=== PATIENT | female | born 2005 | race Caucasian/White ===

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

== ENCOUNTER → 2025-06-18 | Outpatient (CLI) | payer OTHER, SELFPAY ==
[2025-06-22 05:06] LABS: Chlamydia By Nucleic Acid AMP Negative (Negative); Gonococcus By Nucleic Acid AMP Negative (Negative)
== END | disposition home or self-care (01) ==
PROVIDERS: Visit Provider Nurse Practitioner Family
DX: Z11.3 Encounter for screening for infections with a predominantly sexual mode of transmission (principal); R30.0 Dysuria
CPT/HCPCS: 87086; 87088; 87491; 87591

== ENCOUNTER 2025-07-16 10:49 | Emergency (ER) | payer MEDICAID, SELFPAY ==
[2025-07-16 10:51] VITALS: BP 106/71; PULSE 86; RESP 18; TEMP 36.6; O2SAT 98; BMI 28.5
--- NOTE | 2025-07-16 12:56 | ED.RN ---
THIS NURSE NOTIFIED BY AN INDIVIDUAL IN THE WAITING ROOM THAT SHE IS VAPING IN THE WAITING ROOM AND WE ARE ALLERGIC, INDIVIDUAL GESTURED TO THIS PT. PT. EDUCATED ON NO SMOKING POLICY AND INSTRUCTED DEVICE WILL BE REMOVED IF INCIDENT CONTINUES. SECURITY NOTIFIED.
--- NOTE | 2025-07-16 14:11 | EKG12_ITS ---
Test Reason : CP Blood Pressure : */* mmHG Vent. Rate : 68 BPM Atrial Rate : 68 BPM P-R Int : 164 ms QRS Dur : 78 ms QT Int : 428 ms P-R-T Axes : 34 47 8 degrees QTcB Int : 455 ms Normal sinus rhythm Normal ECG Confirmed by LINDA MORRIS, JENNIFER ([id number]), supervising editor trailer RODNEY PAL ([id number]) on 07/20/2025 6:27:39 AM Referred By: Confirmed By: JENNIFER MCKEON MD
--- NOTE | 2025-07-16 14:12 | RAD_ITS ---
PROCEDURE: CHEST PA AND LATERAL 07/16/2025 REASON FOR EXAM: SOB/CP TECHNIQUE: Procedure Code: RADCXR Modality: DX Procedure: CHEST PA AND LATERAL COMPARISON: None. RAD/Chest PA and Lateral IMPRESSION: No pleural effusion or pneumothorax is seen. Lungs appear clear throughout. The cardiomediastinal silhouette is within the normal range. No significant osseous abnormality is noted. Negative examination. Reading Location: [id number]
--- NOTE | 2025-07-16 14:14 | EX.ED.DYSGE1 ---
HPI History of Present Illness Chief Complaint: General Illness Narrative Narrative: Patient is a 19-year-old female presenting to the emergency department for URI symptoms for 4 to 5 weeks. Patient has a past medical history of frequent UTIs. States that the house ([address]) that she is living and has had multiple people sick over the past few weeks. She endorses a generalized headache, has a prior history of migraines. Endorses chills, dry cough, congestion, rhinorrhea, sore throat, nausea and nonbloody nonbilious vomiting. States she was at an urgent care about 2 weeks ago and was prescribed amoxicillin. She endorses chest pain and shortness of breath. Denies history of PE or DVT. Denies any recent travel, hospitalizations or surgeries. She is not on any current OCPs or hormone replacement. Denies any recent drug use or alcohol use. Denies neck or back pain. Denies fevers, visual changes or focal numbness or weakness. Denies head trauma. Reports she has not had a period for multiple months. [facility] Medical History Suicide ideation Home Medications ?Medication ?Instructions ?Recorded ?Last Taken ?Type aripiprazole 5 mg tablet (Abilify) 7.5 mg PO BID 06/27/19 Unknown History trazodone 150 mg tablet 300 mg PO QHS 06/27/19 Unknown History benztropine 2 mg tablet 1 mg PO BID 11/17/19 Unknown History dextroamphetamine-amphetamine 20 20 mg PO DAILY 11/17/19 Unknown History mg tablet dextroamphetamine-amphetamine ER 30 mg PO BREAKFAST 11/17/19 Unknown History 30 mg 24hr capsule,extend release escitalopram oxalate 10 mg tablet 10 mg PO DAILY 11/17/19 Unknown History Allergy/AdvReac Type Severity Reaction Status Date / Time cat dander Allergy Other Verified 07/16/25 10:54 vancomycin Allergy Unknown Verified 07/16/25 10:54 Surgical History Status post genital surgery Social History Smoking Status: Current every day smoker tobacco type: cigarettes and e-cigarettes alcohol intake: former ROS ROS ED ROS Narrative see HPI EXAM Physical Exam Narrative Exam Narrative: Vital signs: Reviewed General: Alert and orientedx3. No acute distress. Nontoxic, well appearing. HEENT: Head is normocephalic and atraumatic, sinuses nontender, pupils equal round and reactive. No conjunctival injection or hemorrhage. Nares are patent. Oropharynx and throat exams normal. Moist mucous membranes. No exudates. No posterior oropharynx erythema or swelling. No peritonsillar abscess. Neck: Supple without lymphadenopathy nontender. Normal active range of motion of neck. No nuchal rigidity. Cardiovascular: Regular rate and rhythm, no murmurs. No rubs or gallops. Normal S1 and S2 Respiratory: Clear to auscultation bilaterally. No wheezes, rales, rhonchi Abdominal: Soft and nontender. Normal bowel sounds. No guarding or rebound. Nonsurgical abdomen Extremities: No lower extremity edema. No tenderness. No bruising. Normal range of motion. Normal sensation. Skin: No rash or redness. Neurological: Cranial nerves II through XII are grossly intact. Normal strength and sensation. Normal cerebellar function The rest of the physical exam is unremarkable Const Vital Signs: 07/16/25 10:51 07/16/25 14:16 07/16/25 15:09 Temperature 98 F Temperature Source Oral Pulse Rate 86 74 Respiratory Rate 18 13 Respiratory Pattern Normal Blood Pressure 106/71 115/50 L Blood Pressure Mean 82 71 Pulse Ox 98 99 Oxygen Delivery Method Room Air Room Air 07/16/25 16:40 Temperature 98.5 F Temperature Source Pulse Rate 72 Respiratory Rate 16 Respiratory Pattern Blood Pressure 122/82 H Blood Pressure Mean 95 Pulse Ox 100 Oxygen Delivery Method [facility] Narrative Medical decision making narrative: Patient is a 19-year-old female presenting to the emergency department for feeling unwell with URI symptoms for the past 4 to 5 weeks. Patient was seen and examined. Vitals are stable. Patient resting in bed comfortably in no acute distress. Differential includes but is not limited to: URI, pneumonia, UTI, , electrolyte imbalance, strep pharyngitis Patient given fluids, Zofran and Toradol for symptomatic control. Her headache is consistent with a tension type headache. She has no altered mental status or fever to suspect meningitis or encephalitis. Has no nuchal rigidity. She is neuro intact I do not think she has a mass or bleed. Has migraines that have been diagnosed in the past. EKG shows normal sinus rhythm at a rate of 68 with no ischemic changes. No dysrhythmia. Chest x-ray reviewed by myself, no opacities, pneumothorax or wide mediastinum. Radiology read in agreement. CBC with no leukocytosis and mild anemia of 11.5. BMP with no significant abnormalities, very mild hyperglycemia 69, patient given orange juice and crackers. P.o. challenge well with no nausea or vomiting after. Urinalysis with no evidence of urinary tract infection, urine negative. Viral swab and strep test were both negative. Patient updated on the negative workup. I explained that she likely has a viral illness given she lives in a house with multiple other individuals there is a high chance that she was reinfected with a virus which is causing her prolonged symptoms. She was encouraged to use supportive care measures at home and was given primary care follow-up. Patient discharged from the Emergency Department. I do not feel that the patient's evaluation reveals any acute reason for admission at this time. I instructed them to either follow-up with their primary care physician or promptly return to the Emergency Department for reevaluation should symptoms worsen or new symptoms develop. I explained what symptoms would indicate the need to return to the emergency department. Shared decision making was used. The patient voiced understanding of the treatment plan and is agreeable with it. Clinical impression: URI Headache Myalgias History & Record Review Discussion w/independent historian: Patient Lab Data Attestation: I reviewed the patient's lab results. Labs: Laboratory Results - last 24 hr 07/16/25 07/16/25 14:24 14:40 WBC 6.5 RBC 3.89 L Hgb 11.5 L Hct 33.5 L MCV 86.1 MCH 29.6 MCHC 34.3 RDW Std Deviation 40.2 RDW Coeff of Tatiana 12.7 Plt Count 244 MPV 9.8 Immature Gran % (Auto) 0.300 Neut % (Auto) 41.3 L Lymph % (Auto) 44.1 H [place] % (Auto) 8.3 Eos % (Auto) 5.4 H Baso % (Auto) 0.6 Absolute Neuts (auto) 2.7 Absolute Lymphs (auto) 2.86 Nucleated RBC % 0 Sodium 138 Potassium 3.4 Chloride 107 Carbon Dioxide 20.2 L Anion Gap 10 BUN 11 Creatinine 0.65 L Estim Creat Clear Calc 137.29 Est GFR (MDRD) Non-Af 129 BUN/Creatinine Ratio 17.5 Glucose 69 L Calcium 8.7 Urine Color Yellow Urine Clarity Clear Urine pH 6.0 Ur Specific [place] 1.015 Urine Protein 15 H Urine Glucose (UA) Normal Urine Ketones Negative Urine Occult Blood Negative Urine Nitrite Negative Urine Bilirubin Negative Urine Urobilinogen Normal Ur Leukocyte Esterase Negative Urine RBC 0 SEEN Urine WBC 0 SEEN Ur Squamous Epith Cells 5-10 SEEN Urine Bacteria 0 SEEN Urine Mucus 1+ Urine Test Negative Radiography Chest X-Ray - ED: 2 View, Read by ED Physician, Normal, No Acute Disease and No Infiltrates Diagnostic Testing: Clinical Impression(s) from Imaging Studies Chest X-Ray 07/16/25 14:12 IMPRESSION: No pleural effusion or pneumothorax is seen. Lungs appear clear throughout. The cardiomediastinal silhouette is within the normal range. No significant osseous abnormality is noted. Negative examination. Reading Location: [address] Discharge Plan Triage Chief Complaint: General Illness ED Provider: Lexus Webb Dx/Rx/DC Orders Clinical Impression: URI (upper respiratory infection), Myalgia, Headache Instructions: Adult Self-Care for Colds Prescriptions: No Action aripiprazole [Abilify] 5 mg tablet 7.5 mg PO BID trazodone 150 mg tablet 300 mg PO QHS dextroamphetamine-amphetamine 20 mg tablet 20 mg PO DAILY Patient Comments: Take 1 tablet by mouth as directed Take 1 tab @ 4PM Rx Instructions: @4pm benztropine 2 MG tablet 1 mg PO BID dextroamphetamine-amphetamine 30 mg capsule,extended release 24hr 30 mg PO BREAKFAST Patient Comments: Take 1 capsule by mouth every morning escitalopram oxalate 10 MG tablet 10 mg PO DAILY Primary Care Provider: Care Physician,No Primary Referrals: May Murillo MD [Med Staff - Marine Electronics Repairer, Internal Medicine] - As soon as possible Care Physician,No Primary [Primary Care Provider, Medical] Activity Restrictions/Additional Instructions: Your evaluation in the Emergency Department did not reveal any acute reason for admission. However, I want to emphasize that you may be early in the course of a disease process or illness even if it is not present. For this reason you should follow-up within 24 hours for reevaluation with either your primary care physician or if necessary back here in the Emergency Department. You should return to the Emergency Department immediately if your symptoms worsen or new symptoms develop. Print Language: Greenlandic Disposition Disposition: Home, Self Care Discharge Date/Time: 07/16/25 16:42
[2025-07-16] MEDS: 0.9% Normal Saline (1000mL) 1,000 ML 1000 ML IV (14:33)
[2025-07-16 14:36] LABS: Hematocrit 33.5 % (37-47); Hemoglobin 11.5 g/dL (12.0-15.0); Immature Granulocytes Count 0.020 X10^3/uL (0.0-0.0); Mean Corp Hgb Conc 34.3 g/dL (32-36); Mean Corpuscular Volume 86.1 fL (81-99); Mean Platelet Vol. 9.8 fl (6.2-12.0); NRBC Flagged by Analyzer 0 % (0-5); Platelet Count 244 K/mm3 (150-450); RBC Distribution Width CV 12.7 % (11.6-14.6); RBC Distribution Width SD 40.2 fl (35.1-43.9); Red Blood Count 3.89 M/mm3 (4.2-5.4); White Blood Count 6.5 K/mm3 (4.4-11.0)
[2025-07-16 14:47] LABS: Red Blood Cells-Urine 0 SEEN /hpf (0-5)
[2025-07-16 14:48] LABS: Color, Urine Yellow (Yellow); Glucose, Dipstick Normal (Normal); Ketone-Dipstick Negative (Negative); Leukocyte Esterase-Dipstick Negative /ul (Negative); Nitrite-Dipstick Negative (Negative); Occult Blood-Urine Negative /ul (Negative); Protein-Dipstick 15 mg/dl (Negative); Specific Gravity, Urine 1.015 (1.002-1.030); Urine Bilirubin Dipstick Negative (Negative)
[2025-07-16 14:54] LABS: Mucous, Urine 1+ /hpf (<or=2+); Squamous Epithelial Cells - UA 5-10 SEEN /hpf (5-10)
[2025-07-16 14:55] LABS: Internal QC Validated? YES +Cl - CLEAR BKGD; Pregnancy, Urine Negative Negative
[2025-07-16 15:09] VITALS: BP 115/50; PULSE 74; RESP 13; O2SAT 99
[2025-07-16 15:24] LABS: Anion Gap 10 (5-15); BUN 11 mg/dL (4-19); BUN/Creat Ratio 17.5 RATIO (10-20); Calcium,Total 8.7 mg/dL (7.6-11.0); Carbon Dioxide 20.2 mmol/L (21.0-32.0); Chloride 107 mmol/L (98-108); Estimated Creatinine Clearance 137.29 ml/min (50-250); Glucose 69 mg/dL (70-99); Potassium 3.4 mmol/L (3.3-5.1)
--- NOTE | 2025-07-16 15:30 | CM.ED ---
Social work Reason for referral: no PCP Referral source: case find SW entered patient's room, introducing self and role at [facility]. Patient immediately stated knowing SW from somewhere and SW recognized knowing patient from a previous place of employment. Patient confirmed lacking a PCP and accepted resources of [facility] Provider Directory and Keri Sullivan information. Patient expressed to SW that patient has had a hard road. Patient expressed details surrounding the difficulties patient has experienced, but the road to sobriety that patient is on currently with [facility]'s help. Patient stated being thankful for [facility] and the success they have been able to provide to patient. Patient denied further needs at this time and thanked for stopping in. Dimple Galaviz, FOREST MANAGER, FOOD PRODUCTION ASSOCIATE
[2025-07-16 16:40] VITALS: BP 122/82; PULSE 72; RESP 16; TEMP 36.9; O2SAT 100
== END 2025-07-16 16:42 | disposition home or self-care (01) ==
PROVIDERS: Emergency Provider Student in an Organized Health Care Education/Training Program; Visit Provider Student in an Organized Health Care Education/Training Program
DX: J06.9 Acute upper respiratory infection, unspecified (principal); R51.9 Headache, unspecified; M79.10 Myalgia, unspecified site; F17.290 Nicotine dependence, other tobacco product, uncomplicated; F17.210 Nicotine dependence, cigarettes, uncomplicated
CPT/HCPCS: 71046; 80048; 81001; 81025; 85025; 87631; 87651; 93005; 96361; 96374; 96375; 99284; A4216; J2405